=== PATIENT | male | born 1985 | race Caucasian/White ===

== ENCOUNTER 2021-10-17 11:36 | Emergency (ER) | payer OTHER ==
--- NOTE | 2021-10-17 12:57 | RAD REPORT ---
EXAM DESCRIPTION: RAD - Knee Left 3 View - 10/17/2021 12:40 pm CLINICAL HISTORY: PAIN COMPARISON: No comparisons FINDINGS/IMPRESSION: No acute fracture. No malalignment. No significant focal degenerative changes.
--- NOTE | 2021-10-17 13:22 | EDPHYS ---
Physician Documentation [facility] Name: Dat Dejesus Age: 36 yrs Sex: Male : 1985 Arrival Date: 10/17/2021 Time: 11:43 Bed 19 Private MD: ED Physician Richard Stern HPI: 10/17 13:15 This 36 yrs old Male presents to ER via Ambulatory with complaints of Knee rahel Pain. 13:15 The patient presents with decreased range of motion, pain. The complaints affect the . rahel Context: resulted from the patient falling. Onset: The symptoms/episode began/occurred 2 day(s) ago. Modifying factors: The symptoms are alleviated by remaining still, the symptoms are aggravated by movement, weight bearing. Associated signs and symptoms: The patient has no apparent associated signs or symptoms. Treatment prior to arrival includes: no previous treatment. Severity of symptoms: At their worst the symptoms were moderate, in the emergency department the symptoms are unchanged. The patient has not experienced similar symptoms in the past. Historical: - Allergies: 11:46 No Known Allergies; ss - Home Meds: 11:46 None [Active]; ss - PMHx: 11:46 None; ss - PSHx: 11:46 None; ss - Immunization history:: Client reports receiving the 2nd dose of the Covid vaccine. - Family history:: not pertinent. - Social history:: Smoking status: Patient denies any tobacco usage or history of. ROS: 13:15 Constitutional: Negative for fever, chills, and weight loss, Eyes: Negative for injury, rahel pain, redness, and discharge, ENT: Negative for injury, pain, and discharge, Neck: Negative for injury, pain, and swelling, Cardiovascular: Negative for chest pain, palpitations, and edema, Respiratory: Negative for shortness of breath, cough, wheezing, and pleuritic chest pain, Abdomen/GI: Negative for abdominal pain, nausea, vomiting, diarrhea, and constipation, Back: Negative for injury and pain, : Negative for injury, bleeding, discharge, and swelling, Skin: Negative for injury, rash, and discoloration, Neuro: Negative for headache, weakness, numbness, tingling, and seizure, Psych: Negative for depression, anxiety, suicide ideation, homicidal ideation, and hallucinations, Allergy/Immunology: Negative for hives, rash, and allergies, Endocrine: Negative for neck swelling, polydipsia, polyuria, polyphagia, and marked weight changes, Hematologic/Lymphatic: Negative for swollen nodes, abnormal bleeding, and unusual bruising. 13:15 MS/extremity: Positive for decreased range of motion, pain, tenderness, of the left leg. Exam: 13:15 Constitutional: This is a well developed, well nourished patient who is awake, alert, rahel and in no acute distress. Head/Face: Normocephalic, atraumatic. Eyes: Pupils equal round and reactive to light, extra-ocular motions intact. Lids and lashes normal. Conjunctiva and sclera are non-icteric and not injected. Cornea within normal limits. Periorbital areas with no swelling, redness, or edema. ENT: Nares patent. No nasal discharge, no septal abnormalities noted. Tympanic membranes are normal and external auditory canals are clear. Oropharynx with no redness, swelling, or masses, exudates, or evidence of obstruction, uvula midline. Mucous membranes moist. Neck: Trachea midline, no thyromegaly or masses palpated, and no cervical lymphadenopathy. Supple, full range of motion without nuchal rigidity, or vertebral point tenderness. No Meningismus. Chest/axilla: Normal chest wall appearance and motion. Nontender with no deformity. No lesions are appreciated. Cardiovascular: Regular rate and rhythm with a normal S1 and S2. No gallops, murmurs, or rubs. Normal PMI, no JVD. No pulse deficits. Respiratory: Lungs have equal breath sounds bilaterally, clear to auscultation and percussion. No rales, rhonchi or wheezes noted. No increased work of breathing, no retractions or nasal flaring. Abdomen/GI: Soft, non-tender, with normal bowel sounds. No distension or tympany. No guarding or rebound. No evidence of tenderness throughout. Back: No spinal tenderness. No costovertebral tenderness. Full range of motion. Male : Normal genitalia with no discharge or lesions. Skin: Warm, dry with normal turgor. Normal color with no rashes, no lesions, and no evidence of cellulitis. Neuro: Awake and alert, GCS 15, oriented to person, place, time, and situation. Cranial nerves II-XII grossly intact. Motor strength 5/5 in all extremities. Sensory grossly intact. Cerebellar exam normal. Normal gait. Psych: Awake, alert, with orientation to person, place and time. Behavior, mood, and affect are within normal limits. 13:15 Musculoskeletal/extremity: ROM: no acute changes, intact in all extremities, Circulation is intact in all extremities. Sensation intact. Compartment Syndrome exam of affected extremity: is normal. Joints: tenderness, Weight bearing: able to fully bear weight, DVT Exam: no swelling, negative Homans' sign noted on exam, no appreciated bluish discoloration, no erythema, no increased warmth, pain, tenderness. 13:23 Musculoskeletal/extremity: negative romana. rahel Vital Signs: 11:43 Resp 16; Weight 89.81 kg; Height 6 ft. 0 in. (182.88 cm); Pain 7/10; ss 11:54 BP 150 / 93; Pulse 73; Pulse Ox 99% on R/A; ss 11:43 Body Mass Index 26.85 (89.81 kg, 182.88 cm) MDM: 11:47 Patient medically screened. rahel 13:15 Differential diagnosis: closed fracture, contusion, tendonitis. Data reviewed: vital arhel signs, nurses notes, radiologic studies, plain films. Data interpreted: athletic monitor: not applicable for this patient encounter. rate is 73 beats/min, rhythm is regular, Pulse oximetry: on room air. Counseling: I had a detailed discussion with the patient and/or guardian regarding: the historical points, exam findings, and any diagnostic results supporting the discharge/admit diagnosis, lab results, radiology results, the need for outpatient follow up, for definitive care, a family practitioner, a orthopedic surgeon. 10/17 11:43 Order name: XRAY Knee LEFT 3 view; Complete Time: 13:15 10/17 11:50 Order name: Ice pack; Complete Time: 12:19 rahel Administered Medications: 13:33 Drug: Motrin (ibuprofen) 800 mg Route: PO; [facility] 13:50 Follow up: Response: No adverse reaction [facility] 13:33 Drug: [place] (HYDROcodone-acetaminophen) 10 mg-325 mg 1 tabs Route: PO; [facility] 13:50 Follow up: Response: No adverse reaction [facility] Disposition Summary: 10/17/21 13:21 Discharge Ordered Location: Home rahel Problem: new rahel Symptoms: have improved rahel Condition: Stable rahel Diagnosis - Fall on same level, unspecified rahel - Pain in left knee rahel - Contusion of knee rahel Followup: rahel - With: Marcus Moore MD - When: 2 - 3 days - Reason: Recheck today's complaints, Continuance of care, Re-evaluation by your physician Discharge Instructions: - Discharge Summary Sheet rahel - Joint Pain rahel - Acute Knee Pain, Adult rahle - Fall Prevention in the Home, Adult [facility] Forms: - Medication Reconciliation Form rahel - Thank You Letter rahel - Antibiotic Education rahel - Prescription Opioid Use [facility] - Work release form [facility] Prescriptions: - Ibuprofen 600 mg Oral Tablet - take 1 tablet by ORAL route every 6 hours As needed take with food; 30 tablet; [facility] Refills: 0, Product Selection Permitted - Tylenol-Codeine #3 300 mg-30 mg Oral - take 2 tablet by ORAL route every 6 hours; 20 tablet; Refills: 0, Product [facility] Selection Permitted Signatures: Dispatcher [employer] Richard Piper MD MD cha Smirch, Shelby RN RN Dana Lloyd RN RN [facility]
--- NOTE | 2021-10-17 13:22 | ER ---
Nurse's Notes [facility] Name: Dat Dejesus Age: 36 yrs Sex: Male : 1985 Arrival Date: 10/17/2021 Time: 11:43 Bed 19 Private MD: Diagnosis: Fall on same level, unspecified;Pain in left knee;Contusion of knee Presentation: 10/17 11:43 Chief complaint: Patient states: L knee pain after slipping off of loading dock. Pt ss reports he hit L knee on a wet loading dock, then continued to fall approximately 5 feet onto same knee. Coronavirus screen: Client denies travel out of the [place] in the last 14 days. Ebola Screen: Patient denies exposure to infectious person. Patient denies travel to an Ebola-affected area in the 21 days before illness onset. Initial Sepsis Screen: Does the patient meet any 2 criteria? No. Patient's initial sepsis screen is negative. Does the patient have a suspected source of infection? No. Patient's initial sepsis screen is negative. Risk Assessment: Do you want to hurt yourself or someone else? Patient reports no desire to harm self or others. Onset of symptoms was October 17, 2021. 11:43 Method Of Arrival: Ambulatory 11:43 Acuity: BETHEL 4 ss Historical: - Allergies: 11:46 No Known Allergies; ss - Home Meds: 11:46 None [Active]; ss - PMHx: 11:46 None; ss - PSHx: 11:46 None; ss - Immunization history:: Client reports receiving the 2nd dose of the Covid vaccine. - Family history:: not pertinent. - Social history:: Smoking status: Patient denies any tobacco usage or history of. Screenin:00 Abuse screen: Denies threats or abuse. Nutritional screening: No deficits noted. 6 Tuberculosis screening: No symptoms or risk factors identified. 12:00 Fall Risk Gait- Impaired (20 pts.). [facility] Assessment: 12:28 General: Appears in no apparent distress. Behavior is calm, cooperative. Pain: 6 Complains of pain in left knee Pain radiates to left piedra Pain currently is 6 out of 10 on a pain scale. Quality of pain is described as sharp, Pain began suddenly, Is continuous, Aggravated by increased activity, repositioning, weight bearing. Musculoskeletal: Reports pain in left knee. 12:59 Reassessment: No changes from previously documented assessment. Patient and/or family [facility] updated on plan of care and expected duration. Pain level reassessed. Vital Signs: 11:43 Resp 16; Weight 89.81 kg; Height 6 ft. 0 in. (182.88 cm); Pain 7/10; ss 11:54 BP 150 / 93; Pulse 73; Pulse Ox 99% on R/A; ss 11:43 Body Mass Index 26.85 (89.81 kg, 182.88 cm) ED Course: 11:43 Patient arrived in ED. 11:46 Triage completed. 11:46 Arm band placed on right wrist. 11:47 Richard Stern MD is Attending Physician. [facility] 12:00 Bed in low position. Call light in reach. Side rails up X 1. [facility] 12:28 Dana Lloyd, RN is Primary Nurse. [facility] 12:30 No provider procedures requiring assistance completed. [facility] 12:42 XRAY Knee LEFT 3 view In Process Unspecified. EDNY 13:20 Marcus Moore MD is Referral Physician. [facility] 13:51 Patient did not have IV access during this emergency room visit. [facility] Administered Medications: 13:33 Drug: Motrin (ibuprofen) 800 mg Route: PO; [facility] 13:50 Follow up: Response: No adverse reaction [facility] 13:33 Drug: [place] (HYDROcodone-acetaminophen) 10 mg-325 mg 1 tabs Route: PO; [facility] 13:50 Follow up: Response: No adverse reaction [facility] Medication: 13:51 VIS not applicable for this client. [facility] Outcome: 13:21 Discharge ordered by . [facility] 13:50 Discharged to Law Enforcement [facility] 13:50 Condition: good 13:50 Discharge instructions given to police. 13:52 Patient left the ED. [facility] Signatures: Dispatcher [employer] EDNY Richard Stern MD MD cha Smirch, Shelby, RN RN Dana Lloyd, JEROD RN [facility]
[2021-10-17] MEDS ORDERED: HYDROCODONE/APAP 10/325 TAB ONE (13:39)
[2021-10-17] MEDS ORDERED: IBUPROFEN 400 MG TAB ONE (13:40)
[2021-10-17 14:57] VITALS: BP 150/93; O2SAT 99
== END 2021-10-17 13:52 | disposition home or self-care (01) ==
LOC: ER 11:36
DX: S80.02XA Contusion of left knee, initial encounter (principal); W18.30XA Fall on same level, unspecified, initial encounter
CPT/HCPCS: 99283